=== PATIENT | female | born 1990 | race Caucasian/White ===

== ENCOUNTER 2018-07-31 13:43 | Inpatient (IN) | payer OTHER ==
[~2018-07-31] VITALS: Ht 170.2 cm; Wt 72.6 kg
[2018-07-31] MEDS ORDERED: MORPHINE SULFATE 4 MG/ML CPJ (NOT FOR IM USE) IV STA (14:42)
[2018-07-31] MEDS ORDERED: ONDANSETRON HCL 4MG/2ML INJ IV STA (14:42)
[2018-07-31] MEDS ORDERED: SODIUM CHLORIDE 0.9% 1000ML BAG (SEPSIS BOLUS) IV ONE (14:45)
[2018-07-31] MEDS ORDERED: CEFTRIAXONE 1 G PREMIX 50 ML IV ONE (14:45)
[2018-07-31] MEDS ORDERED: ACETAMINOPHEN 325MG TABLET PO ONE (14:45)
[2018-07-31 16:33] LABS: HEMOGLOBIN. 12.2 g/dL (12.0-16.0); MEAN CORPUSCULAR HEMOGLOBIN 27.9 pg (28.0-32.0); MEAN CORPUSCULAR VOLUME 84.3 fL (81.0-99.0); MEAN PLATELET VOLUME 9.3 fl (7.4-10.4); PLATELET 227 x1000/uL (130-400); RED BLOOD CELL COUNT 4.39 mill/uL (4.2-5.4); RED CELL DISTRIBUTION WIDTH 16.2 % (11.6-14.6)
[2018-07-31 16:43] LABS: CHLORIDE 103 mEq/L (98-107)
[2018-07-31 16:50] LABS: CLARITY URINE CLOUDY (CLEAR); COLOR URINE YELLOW (YELLOW); HCG SCREEN NEGATIVE; KETONES URINE NEGATIVE (NEGATIVE); LEUKOCYTE ESTERASE URINE 3+ (NEGATIVE); NITRITE URINE NEGATIVE (NEGATIVE); OCCULT BLOOD URINE 2+ (NEGATIVE); PH URINE >=9.0 (4.5-8.0); PROTEIN URINE 1+ (NEGATIVE); SPECIFIC GRAVITY URINE 1.019 (1.005-1.030); UROBILINOGEN URINE 0.2 E.U./dL (0.2-1.0)
[2018-07-31 18:23] LABS: PLATELET ESTIMATE NORMAL
[2018-07-31] MEDS ORDERED: MORPHINE SULFATE 4 MG/ML CPJ (NOT FOR IM USE) IV ONE (19:15)
[2018-07-31] MEDS ORDERED: CLONIDINE 0.1MG TABLET PO PRN (23:00)
[2018-07-31] MEDS: ACETAMINOPHEN 325MG TABLET PO PRN (23:31)
[2018-08-01] VITALS (7 sets, daily range): BP systolic 96–109; BP diastolic 49–66
[2018-08-01] MEDS: HYDROCODONE/ACETAMINOPHEN 5/325MG TABLET PO PRN ×3 (00:34→18:04)
[2018-08-01] MEDS ORDERED: ASPI-1159 PO (00:36)
[2018-08-01] MEDS: LEVOFLOXACIN 750MG PREMIX 150 ML IV SCH ×2 (01:20→20:56)
[2018-08-01] MEDS: ONDANSETRON HCL 4MG/2ML INJ IV PRN ×2 (03:07→22:43)
[2018-08-01] MEDS: ACETAMINOPHEN 325MG TABLET PO PRN ×3 (05:46→21:11)
[2018-08-01 06:34] LABS: HEMATOCRIT. 36.3 % (36.0-48.0); HEMOGLOBIN. 11.7 g/dL (12.0-16.0); MEAN CORPUSCULAR HEMOGLOBIN 27.5 pg (28.0-32.0); MEAN CORPUSCULAR VOLUME 85.1 fL (81.0-99.0); PLATELET 206 x1000/uL (130-400); RED BLOOD CELL COUNT 4.26 mill/uL (4.2-5.4); RED CELL DISTRIBUTION WIDTH 16.4 % (11.6-14.6)
[2018-08-01 06:51] LABS: CHLORIDE 105 mEq/L (98-107)
[2018-08-01] MEDS ORDERED: CEFTRIAXONE 1 G PREMIX 50 ML IV SCH (09:00)
[2018-08-01] MEDS ORDERED: MORPHINE SULFATE 4 MG/ML CPJ (NOT FOR IM USE) IV PRN (13:00)
[2018-08-01] MEDS: SODIUM CHLORIDE 0.45% 1,000 ML IV SCH (13:53)
[2018-08-01] MEDS: ENOXAPARIN 40MG/0.4ML SYR SUBCUT SCH (16:27)
[2018-08-01] MEDS ORDERED: SUMATRIPTAN SUCCINATE 25MG TABLET PO NR (19:30)
[2018-08-01] MEDS: TEMAZEPAM 15MG CAPSULE PO PRN (22:44)
[2018-08-02] VITALS: BP 90/40
[2018-08-02] MEDS: SUMATRIPTAN SUCCINATE 25MG TABLET PO PRN ×2 (00:51→08:55)
[2018-08-02 04:00] VITALS: BP 101/61
[2018-08-02] MEDS: ACETAMINOPHEN 325MG TABLET PO PRN ×2 (04:46→15:57)
[2018-08-02 07:59] VITALS: BP 95/56
[2018-08-02] MEDS: SODIUM CHLORIDE 0.45% 1,000 ML IV SCH (08:54)
[2018-08-02] MEDS: ONDANSETRON HCL 4MG/2ML INJ IV PRN (08:54)
[2018-08-02 10:56] LABS: BASOPHILS % 0.3 % (0.0-2.0); EOSINOPHILS % 1.6 % (0.0-5.0); HEMATOCRIT. 34.9 % (36.0-48.0); HEMOGLOBIN. 11.4 g/dL (12.0-16.0); LYMPHOCYTES % 23.4 % (20.0-50.0); MEAN CORPUSCULAR VOLUME 85.5 fL (81.0-99.0); MEAN PLATELET VOLUME 9.1 fl (7.4-10.4); MONOCYTES % 11.7 % (2.0-8.0); PLATELET 222 x1000/uL (130-400); RED BLOOD CELL COUNT 4.08 mill/uL (4.2-5.4); RED CELL DISTRIBUTION WIDTH 16.1 % (11.6-14.6)
[2018-08-02 11:13] LABS: CHLORIDE 103 mEq/L (98-107)
[2018-08-02 12:00] VITALS: BP 102/57
[2018-08-02] MEDS ORDERED: POTASSIUM CHLORIDE 20MEQ TABLET SR PO SCH (13:00)
[2018-08-02 14:22] LABS: PLATELET ESTIMATE NORMAL
[2018-08-02] MEDS: HYDROCODONE/ACETAMINOPHEN 5/325MG TABLET PO PRN ×2 (14:44→21:47)
[2018-08-02] MEDS: ENOXAPARIN 40MG/0.4ML SYR SUBCUT SCH (14:44)
[2018-08-02 16:00] VITALS: BP 93/54
[2018-08-02 19:31] VITALS: BP 96/53
[2018-08-02] MEDS: LEVOFLOXACIN 750MG PREMIX 150 ML IV SCH (21:29)
[2018-08-02] MEDS ORDERED: SODIUM CHLORIDE 0.9% 1,000 ML IV SCH ×2 (22:30)
[2018-08-02] MEDS ORDERED: SODIUM CHLORIDE 0.9% 1,000 ML IV ONE (23:00)
[2018-08-02] MEDS: TEMAZEPAM 15MG CAPSULE PO PRN (23:16)
[2018-08-03 02:33] VITALS: BP 92/55
[2018-08-03 04:00] VITALS: BP 87/51
[2018-08-03] MEDS: HYDROCODONE/ACETAMINOPHEN 5/325MG TABLET PO PRN (08:46)
[2018-08-03 12:00] VITALS: BP 101/65
[2018-08-03 12:20] VITALS: BP 101/65
== END 2018-08-03 14:15 | disposition home or self-care (01) | DRG 720 ==
LOC: ER 13:43 → 6EST 18:54 → EDBEDREQTM 18:55 → EDBEDREQ 18:55 → ENRESERV 19:30 → 6EST 22:44 → 6WST 23:40
PROVIDERS: ADMIT Internal Medicine; ATTEND Internal Medicine
DX: A41.9 Sepsis, unspecified organism (principal); I95.9 Hypotension, unspecified; N20.0 Calculus of kidney; E87.6 Hypokalemia; E86.0 Dehydration; I10 Essential (primary) hypertension; F32.9 Major depressive disorder, single episode, unspecified; F41.9 Anxiety disorder, unspecified; G89.29 Other chronic pain; D72.829 Elevated white blood cell count, unspecified; I73.9 Peripheral vascular disease, unspecified; Z98.891 History of uterine scar from previous surgery; Z87.442 Personal history of urinary calculi
CPT/HCPCS: 36415; 70450; 71045; 74176; 80048; 80053; 81003; 81025; 83605; 84703; 85025; 87040; 87077; 87086; 87186; 93005; 93970; 96365; 96366; 96375; 99285; J0696; J1650; J1956; J2270; J2405; J7030; J7040

== ENCOUNTER 2018-08-14 19:53 | Inpatient (IN) | payer OTHER ==
[~2018-08-14] VITALS: Ht 162.6 cm; Wt 72.6 kg
[~2018-08-14 19:53] MED LIST: ASPI-1159 PO
[2018-08-14] MEDS ORDERED: SODIUM CHLORIDE 0.9% 1,000 ML IV ONE (21:37)
[2018-08-14] MEDS ORDERED: MORPHINE SULFATE 4 MG/ML CPJ (NOT FOR IM USE) IV STA (21:37)
[2018-08-14] MEDS ORDERED: ONDANSETRON HCL 4MG/2ML INJ IV STA (21:37)
[2018-08-14 21:47] LABS: BASOPHILS % 0.8 % (0.0-2.0); EOSINOPHILS % 1.4 % (0.0-5.0); HEMATOCRIT. 32.3 % (36.0-48.0); HEMOGLOBIN. 10.6 g/dL (12.0-16.0); LYMPHOCYTES % 15.2 % (20.0-50.0); MEAN CORPUSCULAR HEMOGLOBIN 27.8 pg (28.0-32.0); MEAN CORPUSCULAR VOLUME 84.4 fL (81.0-99.0); MEAN PLATELET VOLUME 8.4 fl (7.4-10.4); MONOCYTES % 8.3 % (2.0-8.0); NEUTROPHILS % 74.3 % (40.0-76.0); PLATELET 288 x1000/uL (130-400); RED BLOOD CELL COUNT 3.83 mill/uL (4.2-5.4); RED CELL DISTRIBUTION WIDTH 15.8 % (11.6-14.6)
[2018-08-14 21:50] LABS: CHLORIDE 105 mEq/L (98-107)
[2018-08-14 21:52] LABS: INR 1.1; PROTHROMBIN TIME 10.6 sec (9.1-11.1)
[2018-08-14 23:28] LABS: CLARITY URINE CLEAR (CLEAR); COLOR URINE YELLOW (YELLOW); KETONES URINE NEGATIVE (NEGATIVE); LEUKOCYTE ESTERASE URINE 2+ (NEGATIVE); NITRITE URINE NEGATIVE (NEGATIVE); OCCULT BLOOD URINE 2+ (NEGATIVE); PH URINE 7.5 (4.5-8.0); PROTEIN URINE TRACE (NEGATIVE); UROBILINOGEN URINE 0.2 E.U./dL (0.2-1.0)
[2018-08-15 04:55] VITALS: BP 99/55
[2018-08-15 05:00] VITALS: BP 99/55
[2018-08-15] MEDS ORDERED: ACETAMINOPHEN 325MG TABLET PO PRN (06:15)
[2018-08-15] MEDS ORDERED: SODIUM CHLORIDE 0.45% 1,000 ML IV SCH (06:15)
[2018-08-15] MEDS ORDERED: ONDANSETRON HCL 4MG/2ML INJ IV PRN (06:15)
[2018-08-15] MEDS ORDERED: MORPHINE SULFATE 4 MG/ML CPJ (NOT FOR IM USE) IV PRN (06:15)
[2018-08-15 08:00] VITALS: BP 99/66
[2018-08-15] MEDS ORDERED: LEVOFLOXACIN 500MG PREMIX 100 ML IV SCH (09:00)
[2018-08-15 10:15] LABS: BASOPHILS % 0.4 % (0.0-2.0); EOSINOPHILS % 1.9 % (0.0-5.0); HEMATOCRIT. 34.8 % (36.0-48.0); HEMOGLOBIN. 11.5 g/dL (12.0-16.0); LYMPHOCYTES % 20.9 % (20.0-50.0); MEAN CORPUSCULAR HEMOGLOBIN 28.1 pg (28.0-32.0); MEAN PLATELET VOLUME 8.5 fl (7.4-10.4); MONOCYTES % 9.5 % (2.0-8.0); NEUTROPHILS % 67.3 % (40.0-76.0); PLATELET 283 x1000/uL (130-400); RED BLOOD CELL COUNT 4.09 mill/uL (4.2-5.4); RED CELL DISTRIBUTION WIDTH 16.3 % (11.6-14.6)
[2018-08-15 11:04] LABS: CHLORIDE 106 mEq/L (98-107)
[2018-08-15] MEDS ORDERED: DIPHENHYDRAMINE 50MG/ML VIAL IV NR (11:26)
[2018-08-15] MEDS: KETOROLAC 15MG/ML VIAL IV SCH ×3 (11:27→22:33)
[2018-08-15 12:00] VITALS: BP 90/44
[2018-08-15] MEDS ORDERED: ENOXAPARIN 40MG/0.4ML SYR SUBCUT SCH (12:00)
[2018-08-15] MEDS ORDERED: DIPHENHYDRAMINE 50MG/ML VIAL IV PRN (15:00)
[2018-08-15] MEDS: DEXT 5%/0.45% NACL 1000ML 1,000 ML IV SCH (15:20)
[2018-08-15] MEDS: PIPERACILLIN/TAZ 3.375G PREMIX 50 ML IV SCH ×3 (15:21→23:45)
[2018-08-15 16:00] VITALS: BP 99/63
[2018-08-15] MEDS: FLUTICASONE PROPIONATE 50MCG/SPRAY BOTTLE BOTHNSTRLS SCH (20:27)
[2018-08-16] VITALS: BP 98/55
[2018-08-16 04:00] VITALS: BP 104/50
[2018-08-16] MEDS: KETOROLAC 15MG/ML VIAL IV SCH ×3 (04:52→19:28)
[2018-08-16] MEDS: PIPERACILLIN/TAZ 3.375G PREMIX 50 ML IV SCH ×3 (05:42→19:43)
[2018-08-16] MEDS: DEXT 5%/0.45% NACL 1000ML 1,000 ML IV SCH ×2 (05:51→14:25)
[2018-08-16 06:54] LABS: PROTHROMBIN TIME 10.5 sec (9.1-11.1)
[2018-08-16 07:15] LABS: BASOPHILS % 0.5 % (0.0-2.0); EOSINOPHILS % 3.1 % (0.0-5.0); HEMOGLOBIN. 11.4 g/dL (12.0-16.0); LYMPHOCYTES % 37.5 % (20.0-50.0); MEAN CORPUSCULAR HEMOGLOBIN 27.5 pg (28.0-32.0); MEAN CORPUSCULAR VOLUME 84.7 fL (81.0-99.0); MEAN PLATELET VOLUME 8.9 fl (7.4-10.4); MONOCYTES % 8.3 % (2.0-8.0); NEUTROPHILS % 50.6 % (40.0-76.0); PLATELET 292 x1000/uL (130-400); RED BLOOD CELL COUNT 4.13 mill/uL (4.2-5.4); RED CELL DISTRIBUTION WIDTH 16.2 % (11.6-14.6)
[2018-08-16 08:00] VITALS: BP 109/68
[2018-08-16] MEDS: FLUTICASONE PROPIONATE 50MCG/SPRAY BOTTLE BOTHNSTRLS SCH (09:00)
[2018-08-16 09:44] LABS: CHLORIDE 103 mEq/L (98-107)
[2018-08-16] MEDS ORDERED: PROPOFOL 200MG/20ML VIAL IV ONE (12:55)
[2018-08-16] MEDS ORDERED: MIDAZOLAM HCL 2 MG/2 ML VIAL ONE (12:55)
[2018-08-16] MEDS ORDERED: FENTANYL CITRATE/PF 50MCG/ML 2ML VIAL ONE (12:55)
[2018-08-16] MEDS ORDERED: MORPHINE SULFATE 4 MG/ML CPJ (NOT FOR IM USE) IV PRN (13:45)
[2018-08-16] MEDS ORDERED: ONDANSETRON HCL 4MG/2ML INJ IV PRN (13:45)
[2018-08-16] MEDS ORDERED: FENTANYL CITRATE/PF 50MCG/ML 2ML VIAL IV PRN (13:45)
[2018-08-16 16:00] VITALS: BP 106/65
[2018-08-16] MEDS ORDERED: POTASSIUM CHLORIDE 20MEQ TABLET SR PO NR (20:15)
[2018-08-16 20:38] VITALS: BP 100/55
== END 2018-08-16 21:20 | disposition home or self-care (01) | DRG 445 ==
LOC: ER 19:55 → 6EST 08-15 00:30 → EDBEDREQ 08-15 00:39 → EDBEDREQTM 08-15 00:39 → ENRESERV 08-15 04:03 → ER 08-15 04:50
PROVIDERS: ADMIT Internal Medicine; ATTEND Internal Medicine
PROC: BT1F1ZZ Fluoroscopy of Left Kidney, Ureter and Bladder using Low Osmolar Contrast (ICD-10-PCS; 2018-08-16)
PROC: 0T7B8DZ Dilation of Bladder with Intraluminal Device, Via Natural or Artificial Opening Endoscopic (ICD-10-PCS; principal; 2018-08-16 12:30)
DX: N13.0 Hydronephrosis with ureteropelvic junction obstruction (principal); E16.2 Hypoglycemia, unspecified; N39.0 Urinary tract infection, site not specified; G43.909 Migraine, unspecified, not intractable, without status migrainosus; J06.9 Acute upper respiratory infection, unspecified; N13.2 Hydronephrosis with renal and ureteral calculous obstruction; I10 Essential (primary) hypertension; F32.9 Major depressive disorder, single episode, unspecified; F41.9 Anxiety disorder, unspecified; I83.90 Asymptomatic varicose veins of unspecified lower extremity; Z79.82 Long term (current) use of aspirin; Z87.442 Personal history of urinary calculi
CPT/HCPCS: 36415; 51610; 71045; 74176; 76770; 80048; 93005; 96361; 96365; 96375; 99285; C1769; C2617; J1200; J1650; J1885; J1956; J2250; J2270; J2405; J2543; J2704; J3010; J3490; J7030

== ENCOUNTER 2018-09-18 05:35 | Emergency (ER) | payer OTHER ==
[~2018-09-18] VITALS: Ht 167.6 cm; Wt 77.0 kg
[2018-09-18] MEDS ORDERED: SODIUM CHLORIDE 0.9% 1,000 ML IV ONE (06:18)
[2018-09-18] MEDS ORDERED: ONDANSETRON HCL 4MG/2ML INJ IV STA (06:18)
[2018-09-18] MEDS ORDERED: MORPHINE SULFATE 4 MG/ML CPJ (NOT FOR IM USE) IV STA (06:18)
[2018-09-18 06:48] LABS: BASOPHILS % 0.4 % (0.0-2.0); EOSINOPHILS % 2.2 % (0.0-5.0); HEMATOCRIT. 34.8 % (36.0-48.0); HEMOGLOBIN. 11.4 g/dL (12.0-16.0); MEAN CORPUSCULAR HEMOGLOBIN 27.5 pg (28.0-32.0); MEAN CORPUSCULAR VOLUME 83.8 fL (81.0-99.0); MEAN PLATELET VOLUME 8.5 fl (7.4-10.4); MONOCYTES % 4.6 % (2.0-8.0); NEUTROPHILS % 75.8 % (40.0-76.0); PLATELET 275 x1000/uL (130-400); RED BLOOD CELL COUNT 4.16 mill/uL (4.2-5.4); RED CELL DISTRIBUTION WIDTH 15.5 % (11.6-14.6)
[2018-09-18 06:53] LABS: CHLORIDE 104 mEq/L (98-107)
[2018-09-18 06:57] LABS: CLARITY URINE CLEAR (CLEAR); COLOR URINE YELLOW (YELLOW); KETONES URINE NEGATIVE (NEGATIVE); LEUKOCYTE ESTERASE URINE 2+ (NEGATIVE); NITRITE URINE NEGATIVE (NEGATIVE); OCCULT BLOOD URINE 3+ (NEGATIVE); PH URINE 7.5 (4.5-8.0); PROTEIN URINE 2+ (NEGATIVE); SPECIFIC GRAVITY URINE 1.012 (1.005-1.030); UROBILINOGEN URINE 0.2 E.U./dL (0.2-1.0)
[2018-09-18 07:06] LABS: PROTHROMBIN TIME 9.8 sec (9.1-11.1)
[2018-09-18] MEDS ORDERED: MORPHINE SULFATE 2 MG/ML CPJ (NOT FOR IM USE) IV ONE (08:15)
[2018-09-18] MEDS ORDERED: FAMOTIDINE 20MG/2ML VIAL IV STA (08:43)
[2018-09-18] MEDS ORDERED: MAGNESIUM/ALUMINUM HYDROXIDE/SIMETHICONE 30ML UDC PO STA (08:43)
[2018-09-18] MEDS ORDERED: KETOROLAC 30MG/ML VIAL IV ONE (12:15)
[2018-09-18 13:39] VITALS: BP 119/76
== END 2018-09-18 13:53 | disposition home or self-care (01) ==
LOC: ER 05:35
DX: N39.0 Urinary tract infection, site not specified (principal)
CPT/HCPCS: 36415; 76705; 80053; 81003; 81025; 83690; 85025; 85610; 87086; 96374; 96375; 96376; 99285; J1885; J2270; J2405; J3490; J7030

== ENCOUNTER 2019-03-24 09:28 | Emergency (ER) | payer MEDICAID, OTHER ==
[~2019-03-24] VITALS: Ht 170.2 cm; Wt 69.0 kg
[~2019-03-24 09:28] MED LIST changes: -ASPI-1159 PO; +ASPI-1393 PO
[2019-03-24 12:14] LABS: BASOPHILS % 0.3 % (0.0-2.0); EOSINOPHILS % 0.3 % (0.0-5.0); HEMATOCRIT. 34.4 % (36.0-48.0); HEMOGLOBIN. 11.2 g/dL (12.0-16.0); LYMPHOCYTES % 9.9 % (20.0-50.0); MEAN CORPUSCULAR HEMOGLOBIN 25.3 pg (28.0-32.0); MEAN CORPUSCULAR VOLUME 77.7 fL (81.0-99.0); MEAN PLATELET VOLUME 8.4 fl (7.4-10.4); MONOCYTES % 13.2 % (2.0-8.0); NEUTROPHILS % 76.3 % (40.0-76.0); PLATELET 196 x1000/uL (130-400); RED BLOOD CELL COUNT 4.43 mill/uL (4.2-5.4)
[2019-03-24 12:23] LABS: CHLORIDE 102 mEq/L (98-107)
[2019-03-24 12:45] LABS: CLARITY URINE TURBID (CLEAR); COLOR URINE YELLOW (YELLOW); KETONES URINE TRACE (NEGATIVE); LEUKOCYTE ESTERASE URINE 3+ (NEGATIVE); NITRITE URINE NEGATIVE (NEGATIVE); OCCULT BLOOD URINE 3+ (NEGATIVE); PROTEIN URINE 1+ (NEGATIVE); SPECIFIC GRAVITY URINE 1.017 (1.005-1.030); UROBILINOGEN URINE 0.2 E.U./dL (0.2-1.0)
[2019-03-24] MEDS ORDERED: ONDANSETRON HCL 4MG/2ML INJ IV ONE (14:00)
[2019-03-24] MEDS ORDERED: KETOROLAC 30MG/ML VIAL IV ONE (14:00)
[2019-03-24] MEDS ORDERED: SODIUM CHLORIDE 0.9% 1,000 ML IV ONE (14:00)
[2019-03-24] MEDS ORDERED: CEPHALEXIN 250MG CAPSULE PO ONE (14:15)
[2019-03-24 20:43] VITALS: BP 109/64
== END 2019-03-24 20:45 | disposition home or self-care (01) ==
LOC: ER 09:28
DX: N12 Tubulo-interstitial nephritis, not specified as acute or chronic (principal)
CPT/HCPCS: 36415; 71045; 80053; 81003; 81025; 83605; 85025; 87077; 87086; 87186; 87804; 93005; 96361; 96374; 96375; 99284; J1885; J2405

== ENCOUNTER 2019-08-21 08:24 | Emergency (ER) | payer MEDICAID ==
[~2019-08-21] VITALS: Ht 165.1 cm; Wt 68.0 kg
[2019-08-21] MEDS ORDERED: LORAZEPAM 1MG TABLET PO ONE (08:45)
[2019-08-21 09:40] VITALS: BP 109/75
== END 2019-08-21 09:44 | disposition home or self-care (01) ==
LOC: ER 08:35
DX: F41.9 Anxiety disorder, unspecified (principal); F43.20 Adjustment disorder, unspecified; D64.9 Anemia, unspecified; F32.9 Major depressive disorder, single episode, unspecified; Z88.1 Allergy status to other antibiotic agents; Z87.442 Personal history of urinary calculi
CPT/HCPCS: 93005; 99284

== ENCOUNTER 2019-12-25 13:33 | Emergency (ER) | payer MEDICAID ==
[~2019-12-25] VITALS: Ht 170.2 cm; Wt 73.0 kg
[~2019-12-25 13:33] MED LIST changes: -ASPI-1393 PO; +ASPI-1497 PO
[2019-12-25 14:52] VITALS: BP 119/62
== END 2019-12-25 18:41 | disposition home or self-care (01) ==
LOC: ER 13:38
DX: R21 Rash and other nonspecific skin eruption (principal); Z88.1 Allergy status to other antibiotic agents
CPT/HCPCS: 71045; 99283

== ENCOUNTER 2021-09-30 02:04 | Emergency (ER) | payer MEDICAID ==
[~2021-09-30] VITALS: Ht 172.7 cm; Wt 83.0 kg
[2021-09-30] MEDS ORDERED: LIDOCAINE HCL 1% 10 MG/ML 10ML VIAL INJ NR (03:00)
[2021-09-30] MEDS ORDERED: LIDOCAINE HCL 1% 20ML VIAL (Pyxis) INJ INFIL ONE (03:00)
[2021-09-30 05:15] VITALS: BP 121/84
[2021-09-30] MEDS ORDERED: HYDROCODONE/ACETAMINOPHEN 5/325MG TABLET PO ONE (05:15)
== END 2021-09-30 05:26 | disposition home or self-care (01) ==
LOC: ER 02:04
DX: T16.2XXA Foreign body in left ear, initial encounter (principal); X58.XXXA Exposure to other specified factors, initial encounter; Y93.89 Activity, other specified; Y92.89 Other specified places as the place of occurrence of the external cause
CPT/HCPCS: 69200; 99284; J3490; Z7610

== ENCOUNTER 2022-08-20 18:46 | Emergency (ER) | payer MEDICAID ==
[~2022-08-20] VITALS: Ht 170.2 cm; Wt 74.0 kg
[2022-08-20 20:03] VITALS: BP 116/82
== END 2022-08-20 22:00 | disposition left against medical advice (07) ==
LOC: ER 18:46
DX: Z53.21 Procedure and treatment not carried out due to patient leaving prior to being seen by health care provider (principal)

== ENCOUNTER 2024-08-21 14:03 | Emergency (ER) | payer MEDICAID, OTHER ==
[~2024-08-21] VITALS: Ht 162.6 cm; Wt 81.1 kg
[2024-08-21 14:05] VITALS: BP 109/71; PULSE 92; RESP 16; TEMP 97.9; O2SAT 98; O2SAT 99
[2024-08-21] MEDS: ACETAMINOPHEN 325MG TABLET PO STA (16:13)
[2024-08-21] MEDS ORDERED: NAPR-681 PO (17:11)
== END 2024-08-21 17:41 | disposition home or self-care (01) ==
LOC: ER 14:11
DX: S40.029A Contusion of unspecified upper arm, initial encounter (principal); M54.50 Low back pain, unspecified; R07.89 Other chest pain; V49.49XA Driver injured in collision with other motor vehicles in traffic accident, initial encounter; Y93.89 Activity, other specified; Y92.89 Other specified places as the place of occurrence of the external cause; Y99.8 Other external cause status; Z88.1 Allergy status to other antibiotic agents
CPT/HCPCS: 71045; 72100; 99284

== ENCOUNTER 2025-08-24 14:47 | Emergency (ER) | payer OTHER ==
[~2025-08-24] VITALS: Ht 170.2 cm; Wt 95.0 kg
[~2025-08-24 14:47] MED LIST changes: +NAPR-681 PO
[2025-08-24 15:14] VITALS: O2SAT 98
[2025-08-24] MEDS: ACETAMINOPHEN 325MG TABLET PO ONE (17:15)
[2025-08-24] MEDS: KETOROLAC 15MG/ML VIAL IV ONE (17:58)
[2025-08-24] MEDS: DIPHENHYDRAMINE 50MG/ML VIAL IV ONE (17:58)
[2025-08-24] MEDS: METOCLOPRAMIDE HCL 10MG/2ML VIAL IV ONE (17:58)
[2025-08-24] MEDS: SODIUM CHLORIDE 0.9% 1,000 ML IV ONE (18:05)
[2025-08-24 18:14] LABS: BASOPHILS % 1.0 % (0.0-2.0); EOSINOPHILS % 1.1 % (0.0-5.0); HEMATOCRIT. 38.0 % (36.0-48.0); HEMOGLOBIN. 12.1 g/dL (12.0-16.0); LYMPHOCYTES % 21.1 % (20.0-50.0); MEAN PLATELET VOLUME 8.7 fl (7.4-10.4); MONOCYTES % 5.3 % (2.0-8.0); NEUTROPHILS % 71.5 % (40.0-76.0); PLATELET 345 x1000/uL (130-400); RED BLOOD CELL COUNT 5.11 mill/uL (4.2-5.4); RED CELL DISTRIBUTION WIDTH 18.0 % (11.6-14.6)
[2025-08-24 18:31] LABS: HCG SCREEN NEGATIVE
[2025-08-24] MEDS ORDERED: ONDA-239 PO (19:14)
[2025-08-24] MEDS ORDERED: IBUP-1455 MT (19:14)
[2025-08-24 19:56] VITALS: BP 114/67; PULSE 76; RESP 19; TEMP 36.8; O2SAT 99
== END 2025-08-24 19:58 | disposition home or self-care (01) ==
LOC: ER 14:47
DX: G43.909 Migraine, unspecified, not intractable, without status migrainosus (principal); F32.A Depression, unspecified; Z79.82 Long term (current) use of aspirin; Z87.442 Personal history of urinary calculi; Z88.1 Allergy status to other antibiotic agents
CPT/HCPCS: 84703; 85025; 36415; 96361; 96374; 96375; 99284; J1200; J1885; J2765; J7030; Z7610 ×2